=== PATIENT | female | born 1955 | race African-American/Black ===

== ENCOUNTER 2016-08-06 23:31 | Inpatient (IN) | payer MEDICARE, OTHER ==
[~2016-08-06] VITALS: Ht 165.1 cm; Wt 100.7 kg
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
[2016-08-07] MEDS ORDERED: KETOROLAC TROMETHAMINE 30 MG/ML SYRINGE. IV ONE (00:30)
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
[2016-08-07 01:20] VITALS: BP 179/81
[2016-08-07] MEDS: ACETAMINOPHEN 325 MG TABLET. PO PRN ×2 (02:24→08:08)
[2016-08-07] MEDS ORDERED: INFLUENZA VAX SCREEN BY RX. MC ONE (03:45)
[2016-08-07] MEDS: ONDANSETRON PF 4 MG/2 ML VIAL. IV PRN ×3 (06:07→16:34)
[2016-08-07 07:00] VITALS: BP 165/84
[2016-08-07] MEDS ORDERED: LIDO:MAALOX:DONNATAL 1:1:1 15 ML SINGLE DOSE SWSW PRN (08:45)
[2016-08-07] MEDS ORDERED: FLU VACC QUAD 2016-17 (36MOS+)/PF 0.5 ML SYRINGE. VAX IM ONE (09:00)
[2016-08-07] MEDS: PANTOPRAZOLE 40 MG TABLET. PO SCH (09:10)
[2016-08-07] MEDS: hydrALAZINE 20 MG/ML VIAL. IVP PRN ×2 (09:11→15:04)
[2016-08-07 10:12] LABS: HEMATOCRIT 44.1 % (36.0-47.0); HEMOGLOBIN 14.5 g/dL (12.0-15.5); RED BLOOD COUNT 5.08 x10^6/uL (3.50-5.40); RED CELL DISTRIBUTION WIDTH 15.2 % (11.5-14.5); WHITE BLOOD COUNT 8.4 x10^3/uL (4.0-11.0)
[2016-08-07 10:17] LABS: CALCIUM 8.8 mg/dL (8.5-10.1); CREATININE 1.3 mg/dL (0.6-1.0); GFR 50.6; POTASSIUM 4.3 mmol/L (3.5-5.1)
[2016-08-07] MEDS ORDERED: IOHEXOL 350 MG/ML 100ML VIAL. IV ONE (10:30)
[2016-08-07] MEDS ORDERED: CONTRAST GIVEN MC PRN (10:30)
[2016-08-07 11:00] VITALS: BP 150/64
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
[2016-08-07 14:52] VITALS: BP 177/95
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
[2016-08-07] MEDS: OXYCODONE/APAP 5/325 TABLET. PO PRN ×2 (16:34→23:35)
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
[2016-08-07 19:15] VITALS: BP 146/78
[2016-08-07 23:02] VITALS: BP 137/79
[2016-08-07] MEDS: ALPRAZOLAM 0.25 MG TABLET PO PRN (23:34)
--- NOTE | 2016-08-08 00:39 | ACF ---
Admission Forms Criteria MUSCULOSKELETAL DISEASE GRG Clinical Indications for Admission to Inpatient Care (Place 'X' for any and all applicable criteria): Hospital admission is needed for appropriate care of the patient because of ANY ONE of the following: [X]I. Fracture, dislocation, or other musculoskeletal injury requiring inpatient care(medical) as indicated by ANY ONE of the following(4)(5)(6)(7) [ ]a) Vertebral fracture requiring observation for instability or neurologic compromise (8) [ ]b) Compartment syndrome (proven or cannot be ruled out during observation level of care) (9) [ ]c) Limb-threatening injury [X]d) Major injury requiring inpatient stabilization such as traction initiation or external fixation before internal fixation or closure of complex or open fracture [X]e) Major injury requiring inpatient treatment after emergency or observation level care (as appropriate) [ ]f) Severe pain requiring acute inpatient management [ ]II. Newly diagnosed or suspected bone, joint, or orthopedic device infection (e.g., osteomyelitis, septic arthritis) needing ANY ONE of the following(1)(2)(3) [ ]a) IV antibiotics that cannot be initiated in other than inpatient setting (e.g., patient too unstable or home infusion not available) [ ]b) Device removal or replacement [ ]c) Bone or soft tissue debridement [ ]d) Joint drainage (drain placement or repetitive aspirations) [ ]III. Severe rheumatologic disease (e.g., systemic lupus erythematosus, rheumatoid arthritis) with complications or comorbidities (Also use Optimal Recovery Care Criteria or General Recovery Criteria as appropriate on the basis of predominant condition), including ANY ONE of the following(10 )(11)(12)(13) [ ]a) Severe infection (e.g., [employer] DEVELOPER infection, sepsis) (14) [ ]b) Respiratory complications, including ANY ONE of the following: [ ]i) Pleural effusion with respiratory compromise [ ]ii) Pulmonary hypertension with congestive failure [ ]iii) Respiratory failure [ ]iv) Pulmonary hemorrhage (15) [ ]c) Hematologic disease, including ANY ONE of the following: [ ]i) Coagulopathy with bleeding [ ]ii) Thrombosis with hypercoagulable state [ ]iii) Thrombotic thrombocytopenic purpura [ ]d) Cerebritis with seizures, psychosis, or other severe abnormalities [ ]e) Vertebral destruction with monitoring needed for cervical myelopathy& possible respiratory compromise [ ]f) Exacerbation that requires inpatient treatment (e.g., intravenous immunosuppression) (16) [ ]g) Acute renal failure [ ]IV. Severe vasculitis with complications or comorbidities (Also use Optimal Recovery Care Criteria or General Recovery Criteria as appropriate on the basis of predominant condition), including ANY ONE of the following(11)(12)(17)(18)(19)(20) [ ]a) [employer] DEVELOPER vasculitis with seizures, psychosis, or other severe abnormalities (22) [ ]b) Renal failure (16) [ ]c) Pulmonary hemorrhage (15) [ ]d) Cerebral infarction [ ]e) Gastrointestinal ischemia [ ]f) Gangrene or threatened amputation [ ]g) Exacerbation that requires inpatient treatment (e.g., intravenous immunosuppression) (19)(21) [ ]V. Severe myopathy as indicated by ANY ONE of the following (28)(29) [ ]a) New onset of airway compromise or inability to swallow [ ]b) Respiratory deterioration with observation needed for impending respiratory failure [ ]c) Exacerbation that requires inpatient treatment (e.g., intravenous immunosuppression) [ ]. Severe gout (crystal arthropathy) as indicated by ANY ONE of the following (23)(24) [ ]a) Severe pain requiring acute inpatient management [ ]b) Exacerbation that requires inpatient treatment (e.g., intravenous treatment) [ ]VII.Rhabdomyolysis and ANY ONE of the following (25)(26)(27) [ ]a) Acute renal failure [ ]b) Need for intravenous hydration after emergency or observation level care (as appropriate) [ ]c) Inability to maintain oral hydration [ ]d) Change in mental status [ ]e) Electrolyte abnormality that remains after emergency or observation level care (as appropriate) [ ]VIII Post amputation complication, as indicated by ANY ONE of the following [ ]a) Infection [ ]b) Dehiscence [ ]c) Myodesis failure [ ]IX. Severe pain requiring acute inpatient management as indicated by ALL of the following (30)(31)(32) [ ]a) Continuous or frequent (e.g., every 2 to 4 hrs) parenteral analgesics required [A] [ ]b) Rapid improvement expected from treatment or acute intervention ( e.g., surgery, anesthesia procedure[B] [ ]X. Musculoskeletal Disease and ALL of the following: [ ]a) Symptom or finding for which emergency and observation care have failed or are not considered appropriate (Use General Criteria: Observation Care as appropriate) [ ]b) Presence of ANY ONE of the following [ ]i) A General Admission Criteria [ ]ii) A Pediatric General Admission Criteria The original [facility] content created by [facility] has been revised. The portions of the content which have been revised are identified through the use of italic text or in bold, and [facility] has neither reviewed nor approved the modified material. All other unmodified content is copyright [facility]. Please see references footnoted in the original [facility] edition 2016 Admission Criteria Met?: Yes MARLYS ALSTON Aug 08, 2016 00:39
[2016-08-08 03:00] VITALS: BP 118/72
[2016-08-08 04:08] LABS: BASO % 1 % (0-3); EOS % 2 % (0-3); HEMATOCRIT 40.9 % (36.0-47.0); HEMOGLOBIN 13.4 g/dL (12.0-15.5); LYMPH # 2.7 x10^3/uL (1.0-4.8); LYMPH % 38 % (24-48); MEAN CORPUSCULAR HEMOGLOBIN 29 pg (25-35); MEAN CORPUSCULAR HGB CONC 33 g/dL (31-37); MEAN CORPUSCULAR VOLUME 88 fL (79-100); MONO % 8 % (0-9); NEUT % 52 % (31-73); PLATELET COUNT 227 x10^3/uL (140-400); RED BLOOD COUNT 4.65 x10^6/uL (3.50-5.40); WHITE BLOOD COUNT 7.1 x10^3/uL (4.0-11.0)
[2016-08-08 04:29] LABS: CALCIUM 8.6 mg/dL (8.5-10.1); CREATININE 1.5 mg/dL (0.6-1.0); GFR 42.9; POTASSIUM 3.9 mmol/L (3.5-5.1)
[2016-08-08] MEDS: ALPRAZOLAM 0.25 MG TABLET PO PRN ×2 (06:32→22:29)
[2016-08-08] MEDS: PANTOPRAZOLE 40 MG TABLET. PO SCH (06:32)
[2016-08-08] MEDS: OXYCODONE/APAP 5/325 TABLET. PO PRN ×2 (06:34→20:10)
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
[2016-08-08 07:00] VITALS: BP 112/63
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
--- NOTE | 2016-08-08 08:44 | PDOC ---
IGNACIA PINTO QUICK SKETCH ARTIST 08/08/16 0844: SURGICAL PROGRESS NOTE Subjective headache abdominal pain improved nausea at times she does report chronic abdominal pain intermittently and reflux, burping Vital Signs Vital Signs Date Time Temp Pulse Resp B/P Pulse Ox O2 Delivery O2 Flow Rate FiO2 08/08/16 07:52 Room Air 08/08/16 07:00 97.8 58 18 112/63 94 97.8 I&O Intake and Output 08/08/16 07:00 Intake Total 920 ml Balance 920 ml Intake Oral 920 ml # Voids 2 General: Alert, Cooperative, No acute distress Abdomen: Soft, Other (ND, epigastric pain ) Labs Laboratory Tests Test 08/07/16 08:09 08/07/16 09:48 08/07/16 10:48 08/07/16 16:04 Glucose (Fingerstick) 114mg/dL (70-99) 105mg/dL (70-99) 85mg/dL (70-99) White Blood Count 8.4x10^3/uL (4.0-11.0) Red Blood Count 5.08x10^6/uL (3.50-5.40) Hemoglobin 14.5g/dL (12.0-15.5) Hematocrit 44.1% (36.0-47.0) Mean Corpuscular Volume 87fL (79-100) Mean Corpuscular Hemoglobin 29pg (25-35) Mean Corpuscular Hemoglobin Concent 33g/dL (31-37) Red Cell Distribution Width 15.2% (11.5-14.5) Platelet Count 234x10^3/uL (140-400) Sodium Level 144mmol/L (136-145) Potassium Level 4.3mmol/L (3.5-5.1) Chloride Level 109mmol/L (98-107) Carbon Dioxide Level 25mmol/L (21-32) Anion Gap 10 (6-14) Blood Urea Nitrogen 25mg/dL (7-20) Creatinine 1.3mg/dL (0.6-1.0) Estimated GFR (Cockcroft-Gault) 50.6 Glucose Level 107mg/dL (70-99) Calcium Level 8.8mg/dL (8.5-10.1) Test 08/07/16 21:01 08/08/16 02:30 08/08/16 07:17 Glucose (Fingerstick) 122mg/dL (70-99) 96mg/dL (70-99) White Blood Count 7.1x10^3/uL (4.0-11.0) Red Blood Count 4.65x10^6/uL (3.50-5.40) Hemoglobin 13.4g/dL (12.0-15.5) Hematocrit 40.9% (36.0-47.0) Mean Corpuscular Volume 88fL (79-100) Mean Corpuscular Hemoglobin 29pg (25-35) Mean Corpuscular Hemoglobin Concent 33g/dL (31-37) Red Cell Distribution Width 15.0% (11.5-14.5) Platelet Count 227x10^3/uL (140-400) Neutrophils (%) (Auto) 52% (31-73) Lymphocytes (%) (Auto) 38% (24-48) Monocytes (%) (Auto) 8% (0-9) Eosinophils (%) (Auto) 2% (0-3) Basophils (%) (Auto) 1% (0-3) Neutrophils # (Auto) 3.6x10^3uL (1.8-7.7) Lymphocytes # (Auto) 2.7x10^3/uL (1.0-4.8) Monocytes # (Auto) 0.5x10^3/uL (0.0-1.1) Eosinophils # (Auto) 0.2x10^3/uL (0.0-0.7) Basophils # (Auto) 0.0x10^3/uL (0.0-0.2) Sodium Level 144mmol/L (136-145) Potassium Level 3.9mmol/L (3.5-5.1) Chloride Level 109mmol/L (98-107) Carbon Dioxide Level 27mmol/L (21-32) Anion Gap 8 (6-14) Blood Urea Nitrogen 35mg/dL (7-20) Creatinine 1.5mg/dL (0.6-1.0) Estimated GFR (Cockcroft-Gault) 42.9 Glucose Level 101mg/dL (70-99) Calcium Level 8.6mg/dL (8.5-10.1) Laboratory Tests Test 08/07/16 09:48 3/1/17 10:48 08/07/16 16:04 08/07/16 21:01 White Blood Count 8.4x10^3/uL (4.0-11.0) Red Blood Count 5.08x10^6/uL (3.50-5.40) Hemoglobin 14.5g/dL (12.0-15.5) Hematocrit 44.1% (36.0-47.0) Mean Corpuscular Volume 87fL (79-100) Mean Corpuscular Hemoglobin 29pg (25-35) Mean Corpuscular Hemoglobin Concent 33g/dL (31-37) Red Cell Distribution Width 15.2% (11.5-14.5) Platelet Count 234x10^3/uL (140-400) Sodium Level 144mmol/L (136-145) Potassium Level 4.3mmol/L (3.5-5.1) Chloride Level 109mmol/L (98-107) Carbon Dioxide Level 25mmol/L (21-32) Anion Gap 10 (6-14) Blood Urea Nitrogen 25mg/dL (7-20) Creatinine 1.3mg/dL (0.6-1.0) Estimated GFR (Cockcroft-Gault) 50.6 Glucose Level 107mg/dL (70-99) Calcium Level 8.8mg/dL (8.5-10.1) Glucose (Fingerstick) 105mg/dL (70-99) 85mg/dL (70-99) 122mg/dL (70-99) Test 08/08/16 02:30 08/08/16 07:17 White Blood Count 7.1x10^3/uL (4.0-11.0) Red Blood Count 4.65x10^6/uL (3.50-5.40) Hemoglobin 13.4g/dL (12.0-15.5) Hematocrit 40.9% (36.0-47.0) Mean Corpuscular Volume 88fL (79-100) Mean Corpuscular Hemoglobin 29pg (25-35) Mean Corpuscular Hemoglobin Concent 33g/dL (31-37) Red Cell Distribution Width 15.0% (11.5-14.5) Platelet Count 227x10^3/uL (140-400) Neutrophils (%) (Auto) 52% (31-73) Lymphocytes (%) (Auto) 38% (24-48) Monocytes (%) (Auto) 8% (0-9) Eosinophils (%) (Auto) 2% (0-3) Basophils (%) (Auto) 1% (0-3) Neutrophils # (Auto) 3.6x10^3uL (1.8-7.7) Lymphocytes # (Auto) 2.7x10^3/uL (1.0-4.8) Monocytes # (Auto) 0.5x10^3/uL (0.0-1.1) Eosinophils # (Auto) 0.2x10^3/uL (0.0-0.7) Basophils # (Auto) 0.0x10^3/uL (0.0-0.2) Sodium Level 144mmol/L (136-145) Potassium Level 3.9mmol/L (3.5-5.1) Chloride Level 109mmol/L (98-107) Carbon Dioxide Level 27mmol/L (21-32) Anion Gap 8 (6-14) Blood Urea Nitrogen 35mg/dL (7-20) Creatinine 1.5mg/dL (0.6-1.0) Estimated GFR (Cockcroft-Gault) 42.9 Glucose Level 101mg/dL (70-99) Calcium Level 8.6mg/dL (8.5-10.1) Glucose (Fingerstick) 96mg/dL (70-99) Problem List Problems Medical Problems: (1) Concussion Status: Acute (2) Head injury Status: Acute (3) Nasal fracture Status: Acute Assessment/Plan ventral hernia fat containing and hiatal hernia she is interested in repair--discussed she could FU with Dr Alejo as an outpt noted cr 1.5 today, her PCP is following patient Problems: CHANDRAKANT ALEJO MD 08/08/16 1027: SURGICAL PROGRESS NOTE Assessment/Plan Pt seen and examined. Agree with Ms. Pinto's note Pt feels a little better abd soft, obese, difficult to palpate hernia OK to d/c f/u for consideration of repair Problems: IGNACIA PINTO APRN Aug 08, 2016 08:44 CHANDRAKANT ALEJO MD Aug 08, 2016 10:27
[2016-08-08 11:00] VITALS: BP 145/78
[2016-08-08 15:00] VITALS: BP 134/70
[2016-08-08 19:25] VITALS: BP 131/84
[2016-08-08 23:25] VITALS: BP 140/73
[2016-08-09 03:17] VITALS: BP 148/84
[2016-08-09] MEDS: OXYCODONE/APAP 5/325 TABLET. PO PRN (06:38)
[2016-08-09] MEDS ORDERED: OXYC1TAB7 PO (06:42)
[2016-08-09] MEDS ORDERED: PANT40TA5 PO (06:42)
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
[2016-08-09 07:00] VITALS: BP 183/93
[2016-08-09] MEDS: PANTOPRAZOLE 40 MG TABLET. PO SCH (07:58)
[2016-08-09] MEDS: ALPRAZOLAM 0.25 MG TABLET PO PRN (07:59)
[2016-08-09 08:00] VITALS: BP 183/93
[2016-08-09] MEDS: hydrALAZINE 20 MG/ML VIAL. IVP PRN (08:00)
== END 2016-08-09 09:15 | disposition home or self-care (01) | DRG 155 ==
LOC: EEVIPCON 23:31 → ER 23:31 → 4 NORTH 08-07 00:28
PROVIDERS: ADMIT Family Medicine; ATTEND Family Medicine
DX: S02.2XXA Fracture of nasal bones, initial encounter for closed fracture (principal); S06.0X9A Concussion with loss of consciousness of unspecified duration, initial encounter; E11.9 Type 2 diabetes mellitus without complications; E66.9 Obesity, unspecified; G89.29 Other chronic pain; I10 Essential (primary) hypertension; K04.7 Periapical abscess without sinus; K21.9 Gastro-esophageal reflux disease without esophagitis; K43.9 Ventral hernia without obstruction or gangrene; K44.9 Diaphragmatic hernia without obstruction or gangrene; W21.00XA Struck by hit or thrown ball, unspecified type, initial encounter; Z82.0 Family history of epilepsy and other diseases of the nervous system; Z82.3 Family history of stroke; Z82.49 Family history of ischemic heart disease and other diseases of the circulatory system; Z83.3 Family history of diabetes mellitus; Z86.14 Personal history of Methicillin resistant Staphylococcus aureus infection; Z90.710 Acquired absence of both cervix and uterus; Z88.1 Allergy status to other antibiotic agents
CPT/HCPCS: 36415; 70450; 70486; 71275; 74174; 80048; 82947; 85027; 90686; 96374; J0360; J1885; J2405; Q9967; 97116; 99285-25

== ENCOUNTER → 2016-12-06 | Day surgery (SDC) | payer MEDICARE, OTHER ==
[~2016-12-06] MED LIST: HYDROmorphone 2 MG/ML VIAL IV PRN; IV RINGERS,LACTATED 1000ML 1,000 ML IV SCH; LIDOCAINE 1% 1 ML SYRINGE. ID PRN; LIDOCAINE 2% PF Vial for OR 5 ML VIAL. ONE; LOSA50TA6; MORPHINE SULFATE 2 MG/ML DISP.SYRIN. IV PRN; MUPI22OI2; ONDANSETRON PF 4 MG/2 ML VIAL. IV PRN; OXYC1TAB7 PO; PANT40TA5 PO; PROCHLORPERAZINE 10 MG/2 ML VIAL. IV PRN; PROPOFOL 40 ML IV ONE; fentaNYL PF VIAL 100 MCG/2 ML VIAL IV PRN
[2016-12-06 10:10] VITALS: BP 190/97
[2016-12-06 11:02] LABS: FREE T4 1.15 ng/dL (0.76-1.46)
--- NOTE | 2016-12-09 14:24 | PATHOLOGY ---
PATHOLOGY REPORT * * * * * * * * FINAL DIAGNOSIS: Esophageal biopsies, distal esophagus: - Segments of hyperplastic squamous esophageal mucosa consistent with reflux esophagitis. (JPM:[place]; 12/09/2016) COMMENT: Sections of the distal esophageal biopsy reveal segments of focally tangentially oriented, hyperplastic squamous esophageal mucosa. The findings are consistent with reflux esophagitis. There is no evidence of Hernandez's change, dysplasia, or malignancy. (JPM:[place]; 12/09/2016) REPORT ELECTRONICALLY SIGNED BY: Cristobal Galvan M.D. DATE/TIME: 12/09/2016 14:24 * * * * * * * * GROSS PATHOLOGY: Received in formalin labeled "Sheila Luo, distal esophagus biopsy," are multiple segments of yang soft tissue measuring from less than 0.1 up to 0.3 cm in maximum dimension. The specimen is submitted entirely in cassette A1. (JPM; 12/06/16) INITIAL CPT CODE(S): A; 57557 Professional services performed [place] [facility] [address] Technical services performed by [facility] at [address] [place] [address] [address] [address]. SPECIMEN(S) RECEIVED: A.Distal esophageal biopsy CLINICAL HISTORY: GERD, CRCS PATIENT: SHEILA LUO /AGE: 207/20/1955 (Age: 61) PATIENT #: [id number] ALT CASE #: SPECIMEN COLLECTION DATE: 12/06/2016 SPECIMEN RECEIVED DATE: 12/06/2016 [facility] - [address] [place] [address] - PHONE: [phone] * * * END OF REPORT * * *
== END | disposition home or self-care (01) ==
LOC: ENDOS 07:51
PROVIDERS: ATTEND Internal Medicine Gastroenterology
DX: Z12.11 Encounter for screening for malignant neoplasm of colon (principal); K64.0 First degree hemorrhoids; K57.30 Diverticulosis of large intestine without perforation or abscess without bleeding; K21.0 Gastro-esophageal reflux disease with esophagitis; K44.9 Diaphragmatic hernia without obstruction or gangrene; K29.50 Unspecified chronic gastritis without bleeding; F41.9 Anxiety disorder, unspecified; F32.9 Major depressive disorder, single episode, unspecified; I10 Essential (primary) hypertension; F17.200 Nicotine dependence, unspecified, uncomplicated; Z88.1 Allergy status to other antibiotic agents; Z88.0 Allergy status to penicillin; K21.9 Gastro-esophageal reflux disease without esophagitis; Z72.89 Other problems related to lifestyle; Z72.0 Tobacco use; Z86.14 Personal history of Methicillin resistant Staphylococcus aureus infection
CPT/HCPCS: 36415; 43239; 84439; 84443; 88305; G0121; J2704

== ENCOUNTER → 2016-12-25 | Outpatient (CLI) | payer MEDICARE, OTHER ==
[2016-12-06 10:10] VITALS: BP 190/97
[~2016-12-25] MED LIST changes: -HYDROmorphone 2 MG/ML VIAL IV PRN; -IV RINGERS,LACTATED 1000ML 1,000 ML IV SCH; -LIDOCAINE 1% 1 ML SYRINGE. ID PRN; -LIDOCAINE 2% PF Vial for OR 5 ML VIAL. ONE; -MORPHINE SULFATE 2 MG/ML DISP.SYRIN. IV PRN; -ONDANSETRON PF 4 MG/2 ML VIAL. IV PRN; -PROCHLORPERAZINE 10 MG/2 ML VIAL. IV PRN; -PROPOFOL 40 ML IV ONE; -fentaNYL PF VIAL 100 MCG/2 ML VIAL IV PRN
--- NOTE | 2016-12-27 20:11 | SLEEP ---
DATE OF STUDY: 12/25/2016 ATTENDING PHYSICIAN: Dr. Blake. The patient is 61 years old who weighs 225 pounds with a BMI of 38. The patient has severe subjective hypersomnia with an Gideon score of 17. The patient has previous history of sleep apnea diagnosed 3 years ago and was positive for LEO, but was unable to tolerate CPAP. Another split night study was requested by primary care physician. During the night study, the patient spent 445 minutes in bed and slept for 357 minutes with a sleep efficiency of 80%. Sleep latency was 5 minutes with a REM latency of 151 minutes. Overall, sleep architecture showed increased stage I and stage II sleep, reduced slow wave and slightly reduced REM sleep. During the initial diagnostic portion of the study, the patient slept for 136 minutes. During this time, there were 23 obstructive apneas, 33 mixed and no central apneas. There were 36 hypopneas. The patient's apnea-hypopnea index was 41 per hour with a supine index of 51 per hour. REM sleep was not seen during the diagnostic portion. EKG monitoring revealed normal sinus rhythm, average heart rate was 54 beats per minute. No arrhythmias were observed. Nocturnal oximetry study revealed a mean oxygen saturation of 97% with the lowest of 86%. Only 0.3% of time oxygen saturation remained between 80% and 89%. PLMS were seen at the index of 15 per hour and 4 per hour caused EEG arousals. The patient met the criteria for CPAP initiation. It was started at 7 cm water and titrated up to 18 cm of water. However, due to persistent respiratory events, the patient was switched to BiPAP and at a final BiPAP pressure of 20/10, the patient slept for 42 minutes. The patient had supine as well as REM sleep. AHI was reduced to 0 per hour and oxygen saturation remained above 95%. The patient used small-sized full face mask. IMPRESSION: 1. Severe sleep apnea-hypopnea syndrome with an apnea-hypopnea index of 41 per hour. 2. No clinically significant nocturnal hypoxia. 3. Mild periodic limb movements of sleep at an index of 15 per hour and 4 per hour caused EEG arousals. RECOMMENDATIONS: 1. BiPAP at 20/10 completely eliminated the patient's sleep apnea and should be used on a nightly basis. The patient used small-sized full face mask. 2. Follow up in 4-6 weeks to assess compliance with BiPAP and to document clinical improvement. 3. Weight loss is strongly advised. 4. 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 5. Caution regarding driving until symptoms of sleep apnea resolve with the use of CPAP. 6. PLMS does not need to be treated unless the patient has symptoms of restless legs during the day. KAVON MICHAELS MD DR: JULI/malu JOB#: [id number] / [id number] NAOMI
== END | disposition home or self-care (01) ==
LOC: SLPLAB 18:31
PROVIDERS: ATTEND Internal Medicine Critical Care Medicine
DX: G47.33 Obstructive sleep apnea (adult) (pediatric) (principal)
CPT/HCPCS: 95810

== ENCOUNTER → 2017-07-30 | Outpatient (CLI) | payer MEDICARE, OTHER | END | disposition home or self-care (01) | LOC: KCIC US 13:06 | DX: Z12.31 Encounter for screening mammogram for malignant neoplasm of breast (principal); R10.11 Right upper quadrant pain | CPT/HCPCS: 76700; 77067 ==

== ENCOUNTER → 2017-08-13 | Outpatient (CLI) | payer OTHER | END | disposition home or self-care (01) | LOC: KCIC US 13:00 | DX: R92.8 Other abnormal and inconclusive findings on diagnostic imaging of breast (principal) | CPT/HCPCS: 76641 ==

== ENCOUNTER → 2018-07-17 | Outpatient (CLI) | payer OTHER ==
[2016-12-06 10:10] VITALS: BP 190/97
[~2018-07-17] MED LIST changes: +LOSA-73; -LOSA50TA6
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
--- NOTE | 2018-07-17 14:39 | KCIC ---
Bilateral diagnostic digital mammograms: Reason for examination: Follow-up nodules. Comparison is made to previous study dated 07/30/2017. Interpretation was made with the benefit of CAD. The skin and nipples show no abnormalities. No abnormal axillary lymph nodes are seen. The breast parenchyma shows scattered fibroglandular density. (Breast density: Category B.) There continues to be a small nodule posterior laterally at the 2:30 B position which is stable. There are no new dominant masses, suspicious calcifications or architectural distortions. Impression: No change in the small nodule in the 2:30 B position of the left breast. Ultrasound to follow. BI-RADS Category 0: Incomplete. Needs additional imaging evaluation. Left breast ultrasound: Comparison is made to previous study dated 08/13/2017. Ultrasound examination was performed with attention to the lateral left breast and axilla. The small intramammary lymph node seen previously is not identified on the present examination. This may be due to blending with the adjacent fatty tissues. No other cystic or solid lesions are seen in the breast. In the left axilla, there continues to be a 6.6 mm hypoechoic lesion just beneath the skin surface which probably represents a sebaceous cyst. No abnormal appearing lymph nodes are seen in the axilla. IMPRESSION: No suspicious abnormality seen in the left breast. Probable sebaceous cyst superficially in the left axilla which is stable. Recommend routine mammographic follow-up. BI-RADS Category 2: Benign. "Our facility is accredited by the [employer] Mammography Program." This patient's information has been entered into a reminder system for the patient to be notified with the results of her examination and a target date for the next mammogram. Electronically signed by: Araseli Hood MD (07/17/2018 2:34 PM) [place] [id number]
== END | disposition home or self-care (01) ==
LOC: KCIC MAMMO 12:26
PROVIDERS: ATTEND Family Medicine
DX: R51 Headache (principal); R92.8 Other abnormal and inconclusive findings on diagnostic imaging of breast; Z87.820 Personal history of traumatic brain injury
CPT/HCPCS: 70450; 76641; 77066

== ENCOUNTER → 2019-12-13 | Outpatient (CLI) | payer OTHER ==
[2016-12-06 10:10] VITALS: BP 190/97
[~2019-12-13] MED LIST changes: -PANT40TA5 PO; +PANT40TA77 PO
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
== END | disposition home or self-care (01) ==
LOC: LAB 11:28
PROVIDERS: ATTEND Family Medicine
DX: S52.571A Other intraarticular fracture of lower end of right radius, initial encounter for closed fracture (principal); X58.XXXA Exposure to other specified factors, initial encounter; Y93.89 Activity, other specified; Y92.89 Other specified places as the place of occurrence of the external cause; Y99.8 Other external cause status; M25.441 Effusion, right hand; M21.831 Other specified acquired deformities of right forearm; S52.611A Displaced fracture of right ulna styloid process, initial encounter for closed fracture
CPT/HCPCS: 73110

== ENCOUNTER → 2020-01-07 | Outpatient (CLI) | payer OTHER ==
[2016-12-06 10:10] VITALS: BP 190/97
--- NOTE | 2020-01-07 16:26 | KCIC ---
EXAM: Bilateral screening mammogram. HISTORY: 64-year-old female presents for screening mammography. TECHNIQUE: Full-field digital craniocaudal and mediolateral oblique views of both breasts are obtained for evaluation. Computer aided detection with Joust[employer] software version 9.3 was applied. COMPARISON: Sonogram and mammogram dated 07/17/2018 and mammogram dated 07/30/2017. BREAST PARENCHYMAL DENSITY: Level B - Scattered fibroglandular densities. FINDINGS: There is an asymmetry within the 11:30 position of the right breast at mid depth which is slightly more conspicuous compared to the prior exam. There are additional areas of asymmetry and nodularity within both breasts which are stable in appearance, allowing for differences in technique. There are few benign calcifications. IMPRESSION: BI-RADS Category 0: Incomplete. Additional imaging needed. RECOMMENDATION: Further evaluation with a full field true lateral view and spot compression clinical view of the right breast to assess asymmetry at the 11:30 position at mid depth is recommended. Sonographic imaging can also be performed if deemed indicated based on additional mammographic findings. If your mammogram demonstrates that you have dense breast tissue, which could hide abnormalities, and if you have other risk factors for breast cancer that have been identified, you might benefit from supplemental screening tests that may be suggested by your ordering physician. Dense breast tissue, in and of itself, is a relatively common condition. This information is not provided to cause undue concern, but rather to raise your awareness and to promote discussion with your physician regarding the presence of other risk factors, in addition to dense breast tissue. A report of your mammography results will be sent to you and your physician. You should contact your physician if you have any questions or concerns regarding this report. Mammography is a sensitive method for finding small breast cancers, but it does not detect them all and is not a substitute for careful clinical examination. A negative mammogram does not negate a clinically suspicious finding and should not result in delay in biopsying a clinically suspicious abnormality. PQRS compliance statement - Patient information was entered into a reminder system with a target due date for the next mammogram. "Our facility is accredited by the [employer] Mammography [employer].""Our facility is accredited by the [employer] Mammography [employer]." Electronically signed by: Clarisse Calixto MD (01/07/2020 4:23 PM) [place] [id number]
== END | disposition home or self-care (01) ==
LOC: KCIC MAMMO 15:47
PROVIDERS: ATTEND Family Medicine
DX: Z12.31 Encounter for screening mammogram for malignant neoplasm of breast (principal); N64.89 Other specified disorders of breast
CPT/HCPCS: 77067

== ENCOUNTER → 2020-11-01 | Outpatient (CLI) | payer OTHER ==
[2016-12-06 10:10] VITALS: BP 190/97
[~2020-11-01] MED LIST changes: +MAG HYDROX/ALUMINUM HYD/SIMETH 30 ML ORAL.SUSP PO ONE; +ZOLPIDEM 5 MG TABLET. PO ONE
--- NOTE | 2020-11-02 13:49 | SLEEP ---
DATE OF STUDY: 11/01/2020 SLEEP STUDY ATTENDING PHYSICIAN: Dr. Blake. The patient is a 65-year-old who weighs 214 pounds with a BMI of 35. The patient's Chat[place] score was 17. The patient had a diagnosis of sleep apnea in 2017 and has been using BiPAP at 20/10 and is still having daytime somnolence. Another titration study was requested. During the night study, the patient spent 404 minutes in the bed and slept for 222 minutes with a sleep efficiency of 55%, which is low. Sleep latency was 43 minutes with a REM latency of 197 minutes. Sleep architecture showed normal stage 1 sleep, increased stage 2 sleep, absent slow wave and normal REM sleep. During the initial diagnostic portion of the study, the patient slept for 83 minutes. During that time, there were no obstructive apneas. There were 5 mixed apneas, no central apneas and 22 hypopneas. The patient's AHI was 20 per hour with a supine AHI of 51 per hour. REM sleep was not seen during the diagnostic portion. EKG monitoring revealed normal sinus rhythm. Average heart rate 79 beats per minute. No sustained arrhythmias observed. PLMS were seen at index of 50 per hour and 4 per hour caused EEG arousals. Nocturnal oximetry study revealed an average oxygen saturation of 95% with a lowest of 90%. The patient met the criteria for CPAP initiation. It was started at 5 cm water and titrated up to 11 cm water. The patient slept for 45 minutes at the 11 cm of CPAP. The patient's AHI was reduced to 4 per hour. The patient had lateral REM sleep. The patient's oxygen saturation remained above 90%. The patient used a small-sized full face mask. IMPRESSION: 1. Moderate obstructive sleep apnea with worsening during supine sleep. Absence of REM sleep during the diagnostic portion can underestimate the severity of sleep apnea. 2. No significant nocturnal hypoxia. 3. Severe periodic limb movements in sleep at an index of 50 per hour and 4 per hour caused EEG arousals. RECOMMENDATIONS: 1. CPAP at 11 cm water completely eliminated the patient's sleep apnea and should be used on a nightly basis. 2. Follow up in 4-6 weeks to assess compliance with CPAP and to document clinical improvement. 3. Weight loss is strongly advised. 4. Avoid [employer] depressants. 5. Cautioned regarding driving until symptoms of sleep apnea resolve with the use of CPAP. 6. If the patient remains clinically symptomatic despite effective use of CPAP, then she would require further evaluation to rule out any coexisting narcolepsy. The patient may need MSLT. 7. Review of medications does not reveal any narcotics or sedatives. 8. PLMS can be treated with dopaminergic agonist agents if the patient has symptoms of restless legs during the day as well. JULI/GOYO/DINO DR: Jayden TID: [id number] CC: HENRIETTA BLAKE MD
== END ==
LOC: SLPLAB 19:37
PROVIDERS: ATTEND Family Medicine
DX: G47.33 Obstructive sleep apnea (adult) (pediatric) (principal); G47.61 Periodic limb movement disorder
CPT/HCPCS: 95810